=== PATIENT | female | born 1960 | race Caucasian/White ===

== ENCOUNTER 2016-12-28 08:12 | Emergency (ER) | payer MEDICARE, MEDICAID ==
[2016-12-28 08:31] VITALS: BP 164/79; TEMP 98.2; O2SAT 95
--- NOTE | 2016-12-28 08:49 | ED.PDOC ---
History of Present Illness - General Chief Complaint: General Stated Complaint: Bilat knee discomfort Time Seen by Provider: 12/28/16 08:19 Source: patient Exam Limitations: no limitations - History of Present Illness Initial Comments: pt here with bilateral chronic knee pain. was on constatnt opiates but now off because moved and not yet set up with chronic pain mgmt. cannot take nsaids due to nose bleeds and can not take tylenol due to liver failure. is a diet controlled diabetic. recent flare in knee pain for 1 week. no injury. long standing OA. Timing/Duration: constant Severity: moderate Improving Factors: immobilization, movement Worsening Factors: nothing Associated Symptoms: denies symptoms Allergies/Adverse Reactions: Allergies Liraglutide [From Victoza] Allergy (Verified 12/28/16 08:34) Vomitting Phenol [From Victoza] Allergy (Verified 12/28/16 08:34) Vomitting Propylene Glycol [From Victoza] Allergy (Verified 12/28/16 08:34) Vomitting Codeine Adverse Reaction (Verified 12/28/16 08:34) Nausea Home Medications: Ambulatory Orders Albuterol Inhaler [Ventolin Hfa Inhaler] 2 puff INH Q4H PRN 12/28/16 Arformoterol Tartrate Nebs [Brovana Nebs] 15 mcg NEB RTBID 12/28/16 Furosemide [Lasix] 20 mg PO DAILY 12/28/16 Lactulose 10 gm PO BID 12/28/16 Valsartan 320 mg PO DAILY 12/28/16 predniSONE [Prednisone] 20 mg PO DAILY #5 tab 12/28/16 Review of Systems - Review of Systems Review of Systems: 12/28/16 08:48 for changes from baseline: Constitutional: States: no symptoms reported EENTM: States: no symptoms reported Respiratory: States: no symptoms reported Cardiology: States: no symptoms reported Gastrointestinal/Abdominal: States: no symptoms reported Genitourinary: States: no symptoms reported Musculoskeletal: States: see HPI Skin: States: no symptoms reported Neurological: States: no symptoms reported Endocrine: States: no symptoms reported All other Systems: No Change from Baseline Past Medical History (General) - Patient Medical History Hx Stroke: No Hx Asthma: Yes Hx of COPD: Yes Hx Congestive Heart Failure: No Hx Hypertension: Yes Hx Diabetes: Yes Hx MRSA: No - Vaccination History Hx Influenza Vaccination: Yes - 2016 Hx Pneumococcal Vaccination: Yes - 2016 - Social History Hx Tobacco Use: Yes - Quit 2012 - Female History Patient is a Female of Child Bearing Age (10 -59 yrs old): No Family Medical History - Family History Mother Hx Family Hypertension: Yes Hx Family;Other: Alzheimer's; Arthritis. Grandmother - had Diabetes Physical Exam - Physical Exam General Appearance: Alert, Comfortable, No apparent distress Eye Exam: bilateral other - scleral icterus Ears, Nose, Throat: hearing grossly normal, normal ENT inspection, normal pharynx Neck: full range of motion Respiratory: no respiratory distress, no accessory muscle use Cardiovascular/Chest: normal peripheral pulses, other - chronic bilateral edema. Peripheral Pulses: radial,right: 2+, radial,left: 2+ Gastrointestinal/Abdominal: non tender - obese Rectal Exam: deferred Back Exam: no CVA tenderness, no vertebral tenderness Extremity: normal range of motion, no calf tenderness, normal capillary refill, other - significant djd changes of knees with swelling. no erythema. no crepitus. Neurologic: alert, normal mood/affect, oriented x 3 Skin Exam: normal color - no obvious maricruz jaundice. Comments: Vital Signs - 24 hr 12/28/16 08:29 Temperature 98.2 F Pulse Rate [ 104 H Left Radial] Respiratory 22 Rate Blood Pressure 164/79 [Left Arm] O2 Sat by Pulse 95 Oximetry Progress - Progress Progress: 12/28/16 08:50 pt here with osteoarthritis flare of bilateral knees. she will be written for prednisone 20mg daily for 5 days. she needs to follow her blood sugars while taking this. she needs to keep follow up with her new pcp next week for chronic pain management. er warnings given. Departure - Departure Clinical Impression: Osteoarthritis Qualifiers: Osteoarthritis location: knee Osteoarthritis type: primary Laterality: bilateral Qualified Code(s): M17.0 - Bilateral primary osteoarthritis of knee Disposition: Discharge to Home or Self Care Condition: Fair Departure Forms: ED Discharge - Pt. Copy, Patient Portal Self Enrollment Instructions: DI for Osteoarthritis Diet: diabetic diet Activity: increase activity as tolerated Prescriptions: predniSONE [Prednisone] 20 mg PO DAILY #5 tab Home Medications: Ambulatory Orders Albuterol Inhaler [Ventolin Hfa Inhaler] 2 puff INH Q4H PRN 12/28/16 Arformoterol Tartrate Nebs [Brovana Nebs] 15 mcg NEB RTBID 12/28/16 Furosemide [Lasix] 20 mg PO DAILY 12/28/16 Lactulose 10 gm PO BID 12/28/16 Valsartan 320 mg PO DAILY 12/28/16 predniSONE [Prednisone] 20 mg PO DAILY #5 tab 12/28/16 Additional Instructions: pt here with osteoarthritis flare of bilateral knees. she will be written for prednisone 20mg daily for 5 days. she needs to follow her blood sugars while taking this. she needs to keep follow up with her new pcp next week for chronic pain management. er warnings given.
== END 2016-12-28 09:05 | disposition home or self-care (01) ==
LOC: ER 08:12
DX: M17.0 Bilateral primary osteoarthritis of knee (principal); J44.9 Chronic obstructive pulmonary disease, unspecified; I10 Essential (primary) hypertension; E11.9 Type 2 diabetes mellitus without complications; Z87.891 Personal history of nicotine dependence; Z79.899 Other long term (current) drug therapy; Z88.6 Allergy status to analgesic agent; Z88.8 Allergy status to other drugs, medicaments and biological substances

== ENCOUNTER → 2017-02-08 | Outpatient (CLI) | payer MEDICARE, MEDICAID | END | disposition home or self-care (01) | LOC: YCFC.O 07:47 | PROVIDERS: ATTEND Nurse Practitioner Family | DX: I25.10 Atherosclerotic heart disease of native coronary artery without angina pectoris (principal); E78.2 Mixed hyperlipidemia; E11.9 Type 2 diabetes mellitus without complications; J44.9 Chronic obstructive pulmonary disease, unspecified; K72.90 Hepatic failure, unspecified without coma; E03.9 Hypothyroidism, unspecified ==

== ENCOUNTER → 2017-02-11 | Outpatient (CLI) | payer MEDICARE, MEDICAID ==
--- NOTE | 2017-02-11 21:35 | CT ---
EXAM DESCRIPTION: Abdomen w/Contrast CLINICAL HISTORY: HEPATIC FAILURE, UNSPECIFIED W/O COMA COMPARISON: None Available TECHNIQUE: CT of the abdomen only was performed with IV contrast. This exam was performed according to our departmental dose-optimization program, which includes automated exposure control, adjustment of the mA and/or kV according to patient size and/or use of iterative reconstruction technique. FINDINGS: The spleen is prominently enlarged measuring up to 26 27 cm in length. No perisplenic fluid or focal colonic lesion. The liver is not enlarged, and there is no liver mass or intrahepatic biliary duct dilation. No ascites. The gallbladder is surgically absent. There are a few round soft tissue density structures in the gastrohepatic ligament which probably represent slightly enlarged lymph nodes there are additional slightly enlarged lymph nodes in the barry hepatis. The pancreas, adrenals and kidneys are unremarkable. The spleen does result in slight mass effect on the left kidney without left-sided hydronephrosis. Visualized portions of the GI tract are unremarkable. No pleural effusion is seen. Is minimal dependent atelectasis in the right lung base. No concerning bone lesion. There is degenerative disc disease at L5-S1. IMPRESSION: Prominent splenomegaly resulting in mild mass effect on the left kidney without left-sided hydronephrosis. No hepatomegaly, liver mass or ascites. Several slightly enlarged lymph nodes in the gastrohepatic ligament and barry hepatis, nonspecific. Electronically signed by: Barrington Chahal MD 02/11/2017 9:33 PM CDT Workstation: [id number]
== END ==
LOC: CT 09:05
PROVIDERS: ATTEND Nurse Practitioner Family
DX: K72.90 Hepatic failure, unspecified without coma (principal); R16.1 Splenomegaly, not elsewhere classified